=== PATIENT | female | born 1995 | race African-American/Black ===

== ENCOUNTER 2018-10-13 18:19 | Emergency (ER) | payer SELFPAY ==
--- NOTE | 2018-10-13 18:46 | ER Document Report ---
ED Medical Screen (RME) - General Chief Complaint: Vag Bleeding, +preg <12wks Stated Complaint: BLEEDING WITH Time Seen by Provider: 10/13/18 18:40 Mode of Arrival: Ambulatory Information source: Patient Notes: Patient is an otherwise healthy 23-year-old female presenting to the emergency department with chief complaint of vaginal bleeding in the setting of . 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 Patient also reports low abdominal cramping but denies any active bleeding or passage of any clots. Exam: Patient alert, oriented, answering all questions appropriately. Abdomen soft, nontender with no guarding and no rebound. I have greeted and performed a rapid initial assessment of this patient. A comprehensive ED assessment and evaluation of the patient, analysis of test results and completion of the medical decision making process will be conducted by additional ED providers. I have specifically instructed the patient or family members with the patient to immediately return to any nursing staff should anything change in the patient's condition or with their chief complaint. This medical record was dictated with voice recognizing software. There may be grammatical, syntax errors that are unintended. TRAVEL OUTSIDE OF THE [place] IN LAST 30 DAYS: No - Related Data Allergies/Adverse Reactions: No Known Allergies Allergy (Verified 10/13/18 18:20) Physical Exam - Vital signs Vitals: Temp Pulse Resp BP Pulse Ox 98.6 F 96 18 135/68 H 100 10/13/18 18:22 10/13/18 18:22 10/13/18 18:22 10/13/18 18:22 10/13/18 18:22 Course - Vital Signs Vital signs: Temp Pulse Resp BP Pulse Ox 98.6 F 96 18 135/68 H 100 10/13/18 18:22 10/13/18 18:22 10/13/18 18:22 10/13/18 18:22 10/13/18 18:22
[2018-10-13 19:19] LABS: ABSOLUTE EOSINOPHILS # (AUTO) 0.2 10^3/uL (0.0-0.6); ABSOLUTE LYMPHOCYTES (AUTO) 2.1 10^3/uL (0.5-4.7); ABSOLUTE MONOCYTES (AUTO) 0.5 10^3/uL (0.1-1.4); ABSOLUTE NEUT (AUTO) 3.3 10^3/uL (1.7-8.2); BASOPHILS % (AUTO) 0.4 % (0-2); EOSINOPHILS % (AUTO) 3.6 % (0-6); HEMATOCRIT 33.6 % (36.0-47.0); HEMOGLOBIN 11.5 g/dL (12.0-15.5); LYMPHOCYTES % (AUTO) 34.6 % (13-45); MEAN CORPUSCULAR HEMOGLOBIN 30.7 pg (27.0-33.4); MEAN CORPUSCULAR HGB CONC 34.2 g/dL (32.0-36.0); MEAN CORPUSCULAR VOLUME 90 fl (80-97); MONOCYTES % (AUTO) 7.5 % (3-13); PLATELET COUNT 252 10^3/uL (150-450); RED BLOOD COUNT 3.75 10^6/uL (3.72-5.28); RED CELL DISTRIBUTION WIDTH 15.5 % (11.5-14.0); SEGMENTED NEUTROPHILS % (AUTO) 53.9 % (42-78); TOTAL CELLS COUNTED % (AUTO) 100 %; WHITE BLOOD COUNT 6.1 10^3/uL (4.0-10.5)
[2018-10-13 19:22] LABS: APPEARANCE,URINE CLOUDY; BILIRUBIN,URINE NEGATIVE (NEGATIVE); COLOR,URINE YELLOW; GLUCOSE, URINE NEGATIVE (NEGATIVE); KETONES,URINE NEGATIVE (NEGATIVE); LEUKOCYTE ESTERASE,URINE NEGATIVE (NEGATIVE); NITRITE,URINE NEGATIVE (NEGATIVE); PROTEIN,URINE NEGATIVE (NEGATIVE); UROBILINOGEN,URINE NEGATIVE mg/dL (<2.0)
--- NOTE | 2018-10-13 20:03 | ER Document Report ---
ED General - General Chief Complaint: Vag Bleeding, +preg <12wks Stated Complaint: BLEEDING WITH Time Seen by Provider: 10/13/18 18:40 Mode of Arrival: Ambulatory TRAVEL OUTSIDE OF THE [place] IN LAST 30 DAYS: No - HPI Notes: Patient is a 23-year-old female G5, P0 approximately 11 weeks who presents complaining of cramping and vaginal spotting that began today. Patient has had 4 other previous miscarriages. She is otherwise feeling well and has been able to eat and drink without difficulty. She is urinating normally and having normal bowel movements. Pain does not radiate. Pain is not deemed severe. No other vaginal odor or discharge. Denies drug allergies. Denies any headache, fever, URI, sore throat, chest pain, palpitations, syncope, cough, sh ortness of breath, wheeze, dyspnea, nausea/vomiting/diarrhea, urinary retention, dysuria, hematuria, back pain, or rash. - Related Data Allergies/Adverse Reactions: No Known Allergies Allergy (Verified 10/13/18 18:20) Past Medical History - General Information source: Patient - Social History Smoking Status: Current Every Day Smoker Family History: Reviewed & Not Pertinent Patient has suicidal ideation: No Patient has homicidal ideation: No Review of Systems - Review of Systems -: Yes All other systems reviewed and negative Physical Exam - Vital signs Vitals: Temp Pulse Resp BP Pulse Ox 98.6 F 96 18 135/68 H 100 10/13/18 18:22 10/13/18 18:22 10/13/18 18:22 10/13/18 18:22 10/13/18 18:22 - Notes Notes: PHYSICAL EXAMINATION: GENERAL: Well-appearing, well-nourished and in no acute distress. HEAD: Atraumatic, normocephalic. EYES: Pupils equal round and reactive to light, extraocular movements intact, sclera anicteric, conjunctiva are normal. ENT: Nares patent and without discharge. oropharynx clear without exudates. No tonsilar hypertrophy or erythema. Moist mucous membranes. NECK: Normal range of motion, supple without lymphadenopathy LUNGS: Breath sounds clear to auscultation bilaterally and equal. No wheezes rales or rhonchi. HEART: Regular rate and rhythm without murmurs, rubs, gallops. ABDOMEN: Soft, nontender, nondistended abdomen. No guarding, no rebound. Normal bowel sounds present. No CVA tenderness bilaterally. Musculoskeletal: FROM to passive/active. Strength 5+/5. Extremities: No cyanosis, clubbing, or edema b/l. Peripheral pulses 2+. Capillary refill less than 3 seconds. NEUROLOGICAL: Normal speech, normal gait. PSYCH: Normal mood, normal affect. SKIN: Warm, Dry, normal turgor, no rashes or lesions noted. Course - Re-evaluation Re-evalutation: 10/13/18 21:38 Patient is an afebrile, well-hydrated, 23-year-old female who presents to the ED with bleeding in early and intrauterine . Vitals are acceptable without any significant tachycardia, tachypnea, or hypoxia. PE is otherwise unremarkable. [place] [address]+. TVUS shows IUP approx 10wk 5 day. UA unremarkable. Patient is nontoxic- appearing is tolerating p.o. without any difficulties. No other labs or imaging warranted at this time based on H&P. Low suspicion/risk for acute appendicitis, bowel obstruction, acute cholecystitis, acute cholangitis, perforated diverticulitis, incarcerated hernia, pancreatitis, perforated ulcer, peritonitis, sepsis, pelvic inflammatory disease, ectopic , tubo- ovarian abscess, ovarian torsion, or other systemic emergent condition at this time. Patient is aware that her condition can change from initial presentation and she needs to monitor symptoms closely and seek medical attention if any acute changes. Conservative measures otherwise for symptoms. Recheck with your PCM/OBGYN in 3-5 days. Return to the ED with any worsening/concerning symptoms otherwise as reviewed in discharge. Patient is in agreement. - Vital Signs Vital signs: Temp Pulse Resp BP Pulse Ox 98.6 F 96 18 135/68 H 100 10/13/18 18:22 10/13/18 18:22 10/13/18 18:22 10/13/18 18:22 10/13/18 18:22 - Laboratory Result Diagrams: 10/13/18 19:00 Laboratory results interpreted by me: 10/13/18 10/13/18 19:00 19:00 Hgb 11.5 L Hct 33.6 L RDW 15.5 H Beta HCG, Quant 02234.00 H Discharge - Discharge Clinical Impression: Bleeding in early Condition: Stable Disposition: HOME, SELF-CARE Instructions: Bleeding During Early ([facility]) Additional Instructions: Maintain fluid intake Proper hygienic technique Keep the skin clean Tylenol/ibuprofen as needed F/u with your PCM/OBGYN in 3-5 days for a recheck Return to the ED with any development of PARR/fever, trouble with vision, eye redness, worsening pain, urethral discharge, urinary retention, blood in the urine, flank pain, abdominal pain, n/v, Chest Pain, shortness of breath, joint pains, trouble breathing, or any other worsening/concerning symptoms as needed otherwise. Forms: Elevated Blood Pressure Referrals: [facility] [Provider Group] - Follow up in 3-5 days
--- NOTE | 2018-10-13 21:36 | RADIOLOGY REPORT (SQ) ---
EXAM DESCRIPTION: RadLex: US LESS THAN 14 WEEKS CLINICAL HISTORY: 23 years Female; 11 weeks preg, vag bleed TECHNIQUE: Transabdominal and transvaginal pelvic ultrasound was performed. COMPARISON: None. FINDINGS: Uterus: 10.3 x 7 x 8.1 cm. Intrauterine gestational sac is identified. Single pole is identified, CRL 3.82 cm, 10 weeks 5 days heart rate 171 BPM Cervix 3.1 cm, closed No adjacent hematoma. Right ovary: 2.8 x 1.9 x 2 cm. Normal vascular flow on Doppler. Left ovary: 3.2 x 2.2 x 2 cm. Normal vascular flow on Doppler. No free fluid. No adnexal masses. IMPRESSION: 1. Single viable IUP, EGA 10 weeks 5 days, MELODIE 05/06/2019 2. No acute findings
[2018-10-13 22:07] VITALS: BP 123/70
== END 2018-10-13 22:04 | disposition home or self-care (01) ==
LOC: ER 18:19
DX: O20.9 Hemorrhage in early pregnancy, unspecified (principal); O99.331 Smoking (tobacco) complicating pregnancy, first trimester; Z3A.11 11 weeks gestation of pregnancy
CPT/HCPCS: 36415; 76801; 81001; 84702; 85025; 86900; 86901; 93976; 99284

== ENCOUNTER 2019-02-16 21:50 | Emergency (ER) | payer MEDICAID ==
--- NOTE | 2019-02-16 22:58 | ER Document Report ---
ED Medical Screen (RME) - General Chief Complaint: Depression Stated Complaint: PSYCH EVAL Time Seen by Provider: 02/16/19 22:52 Mode of Arrival: Ambulatory Information source: Patient Notes: Patient presents with a history of personality disorder and depression. Patient states she has been off her medication for 30 days because she has not been able to get into see her mental health provider. Patient states she is currently 29 weeks . Patient denies any problems during the at this time. Patient denies any suicidal or homicidal ideation. Patient states she feels as though her hormones are causing her to become more unstable and she would like to be evaluated before things start to worsen. I have greeted and performed a rapid initial assessment of this patient. A comprehensive ED assessment and evaluation of the patient, analysis of test results and completion of the medical decision making process will be conducted by additional ED providers. TRAVEL OUTSIDE OF THE [place] IN LAST 30 DAYS: No - Related Data Allergies/Adverse Reactions: No Known Allergies Allergy (Verified 02/16/19 22:46) Physical Exam - Vital signs Vitals: Temp Pulse Resp BP Pulse Ox 98.9 F 96 16 135/70 H 100 02/16/19 22:01 02/16/19 22:01 02/16/19 22:01 02/16/19 22:01 02/16/19 22:01 - General General appearance: Appears well, Alert - Psychological Associated symptoms: Normal affect, Normal mood Course - Vital Signs Vital signs: Temp Pulse Resp BP Pulse Ox 98.9 F 96 16 135/70 H 100 02/16/19 22:01 02/16/19 22:01 02/16/19 22:01 02/16/19 22:01 02/16/19 22:01
[2019-02-17] MEDS ORDERED: METOCLOPRAMIDE HCL 10 MG TABLET PO ONE (00:03)
[2019-02-17 00:17] LABS: APPEARANCE,URINE SLIGHTLY-CLOUDY; BILIRUBIN,URINE NEGATIVE (NEGATIVE); COLOR,URINE YELLOW; GLUCOSE, URINE NEGATIVE (NEGATIVE); KETONES,URINE NEGATIVE (NEGATIVE); LEUKOCYTE ESTERASE,URINE TRACE (NEGATIVE); NITRITE,URINE NEGATIVE (NEGATIVE); PROTEIN,URINE NEGATIVE (NEGATIVE); URINE SPECIFIC GRAVITY 1.017; UROBILINOGEN,URINE NEGATIVE mg/dL (<2.0)
--- NOTE | 2019-02-17 00:17 | ER Document Report ---
ED Psych Disorder / Suicide - General Chief Complaint: Depression Stated Complaint: PSYCH EVAL Time Seen by Provider: 02/16/19 22:52 Mode of Arrival: Ambulatory Notes: Patient is a 23-year-old female that comes to the emergency department for chief complaint of feeling depressed and overwhelmed. Patient states that she is out of her Prozac, she attempted to go to see [facility] earlier today but they were closed, she states she felt like she could not wait so she came here. She states that she has started to "snap at everybody and drive everyone away", she states that she is constantly "stuck in my thoughts" and "crying all the time". She states this is worse and she is not sure if this is because she is off her medication or because the is progressing with "all the hormones". She is G6, P0 at 29 weeks gestation. She denies any daily medications other than vitamins, she states that she was on 10 mg of Prozac until she ran out. She states that she is become very depressed and she has had suicide attempts in the past and she is scared that she will progress from here. She states she does not want to get to that point. She denies homicidal ideations. She states she is also diagnosed with borderline personality disorder. TRAVEL OUTSIDE OF THE [place] IN LAST 30 DAYS: No - Related Data Allergies/Adverse Reactions: No Known Allergies Allergy (Verified 02/16/19 22:46) Past Medical History - General Information source: Patient - Social History Smoking Status: Former Smoker Frequency of alcohol use: None Drug Abuse: None Lives with: Family Family History: Reviewed & Not Pertinent Patient has suicidal ideation: No Patient has homicidal ideation: No Psychiatric Medical History: Reports: Hx Anxiety, Hx Borderline Personality Disorder, Hx Depression - Immunizations Immunizations up to date: Yes Hx Diphtheria, Pertussis, Tetanus Vaccination: Yes Review of Systems - Review of Systems Constitutional: No symptoms reported EENT: No symptoms reported Cardiovascular: No symptoms reported Respiratory: No symptoms reported Gastrointestinal: See HPI Genitourinary: No symptoms reported Female Genitourinary: See HPI Musculoskeletal: No symptoms reported Skin: No symptoms reported Hematologic/Lymphatic: No symptoms reported Neurological/Psychological: See HPI Physical Exam - Vital signs Vitals: Temp Pulse Resp BP Pulse Ox 98.9 F 96 16 135/70 H 100 02/16/19 22:01 02/16/19 22:01 02/16/19 22:01 02/16/19 22:01 02/16/19 22:01 - Notes Notes: GENERAL: Alert, interacts well. No acute distress. HEAD: Normocephalic, atraumatic. EYES: Pupils equal, round, and reactive to light. Extraocular movements intact. ENT: Oral mucosa moist, tongue midline. Oropharynx unremarkable. Airway patent. LUNGS: Clear to auscultation bilaterally, no wheezes, rales, or rhonchi. No respiratory distress. HEART: Regular rate and rhythm. No murmur ABDOMEN: Soft, non-tender. Gravid abdomen EXTREMITIES: Moves all 4 extremities spontaneously. No edema, normal radial and dorsalis pedis pulses bilaterally. No cyanosis. BACK: no cervical, thoracic, lumbar midline tenderness. No saddle anesthesia, normal distal neurovascular exam. Moves all extremities in full range of motion. NEUROLOGICAL: Alert and oriented x3. Normal speech. Cranial nerves II through XII grossly intact. PSYCH: Normal affect, normal mood. SKIN: Warm, dry, normal turgor. No rashes or lesions noted. Course - Re-evaluation Re-evalutation: Patient was brought here by a friend, dropped off with the anticipation of her staying and having a psychiatric evaluation. Patient states she specifically wants this and wants to be started on medications again. She is not suicidal or homicidal, she is cooperative. Because of her vomiting earlier work-up was performed but she is medically cleared now pending mental health team evaluation. Patient states she gets anxious and sometimes vomit when she gets worked up. She has no symptoms on reevaluation. Patient is on IVC paperwork because she does not meet criteria. - Vital Signs Vital signs: Temp Pulse Resp BP Pulse Ox 98.2 F 82 20 132/72 H 100 02/17/19 06:10 02/17/19 06:10 02/17/19 06:10 02/17/19 06:10 02/17/19 06:10 - Laboratory Result Diagrams: 02/16/19 23:18 02/16/19 23:18 Laboratory results interpreted by me: 02/16/19 02/16/19 02/16/19 23:18 23:18 23:39 WBC 10.8 H RBC 3.45 L Hgb 10.9 L Hct 31.4 L Sodium 133.8 L Creatinine 0.50 L Urine Blood SMALL H Ur Leukocyte Esterase TRACE H Discharge - Discharge Clinical Impression: Anxiety, Has run out of medications Depression Qualifiers: Depression Type: unspecified Qualified Code(s): F32.9 - Major depressive disorder, single episode, unspecified Condition: Stable Disposition: PSYCH HOSP/UNIT
[2019-02-17 00:26] LABS: ABSOLUTE EOSINOPHILS # (AUTO) 0.3 10^3/uL (0.0-0.6); ABSOLUTE LYMPHOCYTES (AUTO) 2.7 10^3/uL (0.5-4.7); ABSOLUTE MONOCYTES (AUTO) 0.9 10^3/uL (0.1-1.4); ABSOLUTE NEUT (AUTO) 6.9 10^3/uL (1.7-8.2); BASOPHILS % (AUTO) 0.4 % (0-2); EOSINOPHILS % (AUTO) 2.3 % (0-6); HEMATOCRIT 31.4 % (36.0-47.0); HEMOGLOBIN 10.9 g/dL (12.0-15.5); LYMPHOCYTES % (AUTO) 25.1 % (13-45); MEAN CORPUSCULAR HEMOGLOBIN 31.4 pg (27.0-33.4); MEAN CORPUSCULAR HGB CONC 34.6 g/dL (32.0-36.0); MEAN CORPUSCULAR VOLUME 91 fl (80-97); MONOCYTES % (AUTO) 8.2 % (3-13); PLATELET COUNT 311 10^3/uL (150-450); RED BLOOD COUNT 3.45 10^6/uL (3.72-5.28); RED CELL DISTRIBUTION WIDTH 13.5 % (11.5-14.0); TOTAL CELLS COUNTED % (AUTO) 100 %; WHITE BLOOD COUNT 10.8 10^3/uL (4.0-10.5)
[2019-02-17 00:35] LABS: ALBUMIN 3.9 g/dL (3.5-5.0); ALKALINE PHOSPHATASE 64 U/L (38-126); ANION GAP 9 (5-19); ASPARTATE AMINO TRANSFERASE 18 U/L (14-36); BILIRUBIN,DIRECT 0.2 mg/dL (0.0-0.4); BILIRUBIN,TOTAL 0.2 mg/dL (0.2-1.3); BLOOD UREA NITROGEN 9 mg/dL (7-20); CALCIUM 9.4 mg/dL (8.4-10.2); CARBON DIOXIDE 24 mmol/L (22-30); CHLORIDE 101 mmol/L (98-107); GLUCOSE 93 mg/dL (75-110); POTASSIUM 3.9 mmol/L (3.6-5.0)
[2019-02-17 08:40] VITALS: BP 117/75
--- NOTE | 2019-02-17 11:56 | PSYCHOLOGICAL NOTE ---
Psych Note - Psych Note Date seen by psych provider: 02/17/19 Time seen by psych provider: 08:15 Psych Note: Reason for consult: Medication recommendations for Depression Patient is a 23 year old female who presents to ED via POV requesting prescription refill of antidepressant medication. Patient is 29 weeks . Patient is linked with [facility] for medication management and mental health services. Patient states she has been trying for 30 days to refill medications but has been unsuccessful. Patient was prescribed Prozac 10MG, daily. Patient reports mental health diagnosis of Depression and Borderline Personality Disorder. Patient described impulsive behaviors. Patient moved here on a whim with little social support, patient has spent more money that needed, in the process of evicting roommate "for no real reason," and "can go from 0-60 quick." Patient reports "feeling safe but not comfortable at home." Patient states "my roommate won't mess with me cause she knows I'm crazy." Patient denies suicidal and homicidal ideation. Patient reports previous suicide attempts that coincided with miscarriages. Patient was voluntarily committed twice and involuntarily committed once for ETOH-Depression related issues. Patient states she was involved in a "group class at an inpatient place" where she attended classes from 8-3 Tuesday -Tuesday. Patient is requesting similar resource. Patient is alert and oriented to person, place, time and circumstance. Mood is euthymic with congruent affect as evidenced by laughing, smiling, and engagement with clinician. Patient denies suicidal and homicidal ideations. Delusions are absent and behavior is congruent with an intact reality based presentation (i.e., organized and linear through processes). There is no observed behavior that suggests patient is responding to internal stimuli. Patient denies current auditory and visual hallucinations. Eye contact is good. Conversational speech is within normal rate, tone, and prosody. Intellectual ability appears to be within average range. Attention and concentration are good. Insight, judgment and impulse control are currently poor. Impression/Plan: Patient is cleared from acute psychiatric services. Patient denies suicidal and homicidal ideations. There is no observed behavior that suggests patient is responding to internal stimuli. Patient denies current auditory and visual hallucinations. Patient is requesting refill of antidepressant medication. There is no observed behaviors that suggest patient is a danger to herself or others. Plan is for patient to follow up with her OBGYN for appropriate medication management and [facility] for mental health services. Clinician spoke with patient regarding [facility] mobile crisis. Dr. Gramajo was consulted on the care and management of this patient; attending physician is in agreement with recommendations and disposition.
--- NOTE | 2019-02-17 14:55 | ER Document Report ---
Doctor's Note Notes: 02/17/19 14:53 Did speak with the patient prior to discharge; she currently denies suicidal homicidal ideation. Patient denies visual or auditory hallucinations. Patient reports that she attempted to follow-up with [facility] to have her Prozac refilled on Tuesday but that the office was closed. Patient states that she does weston depression and does have a history of his suicidal thoughts and attempts in the past. Patient reports at this time she does not want to hurt herself as she is 29 weeks and wants to live for her baby. Patient was given multiple referrals to psychiatric facilities here in the [place] area. Patient states she has been in contact with mobile crisis and that they told her they would meet with her today. I told her to continue with this to help initiate follow-up. Patient stable for discharge at this time. Patient was given strict return precautions if she were to develop any suicidal homicidal thoughts or worsening symptoms. Patient is alert and oriented x4. Patient nontoxic- appearing.
== END 2019-02-17 15:00 | disposition home or self-care (01) ==
LOC: ER 21:50
DX: O99.343 Other mental disorders complicating pregnancy, third trimester (principal); F32.9 Major depressive disorder, single episode, unspecified; F60.9 Personality disorder, unspecified; F41.9 Anxiety disorder, unspecified; Z3A.29 29 weeks gestation of pregnancy
CPT/HCPCS: 99284; 36415; 87086; 85025; 80053; 81001; J3490